=== PATIENT | male | born 1970 | race Hispanic/Latino ===

== ENCOUNTER → 2017-08-07 | Outpatient (CLI) | payer OTHER | LOC: M PAIN 11:15 | DX: G89.29 Other chronic pain (principal); M47.22 Other spondylosis with radiculopathy, cervical region | CPT/HCPCS: G0463 ==

== ENCOUNTER 2018-02-15 13:02 | Inpatient (IN) | payer OTHER ==
[~2018-02-15 13:02] MED LIST: LIDOCAINE 1% MDV 20ML VIAL SQ
[2018-02-15] MEDS ORDERED: fentaNYL 100 MCG/2 ML INJECTION (J3010) As Ordered (13:37)
[2018-02-15] MEDS ORDERED: dexameTHASONE 4 MG/ML 1ML VIAL (J1100) As Ordered (13:37)
[2018-02-15] MEDS ORDERED: LIDOCAINE 2% INJ 100 MG/5 ML SDV (FOR ANES.) As Ordered (13:37)
[2018-02-15] MEDS ORDERED: ROCURONIUM BROMIDE 50 MG/5 ML VIAL As Ordered (13:37)
[2018-02-15] MEDS ORDERED: MIDAZOLAM INJ 2 MG/2 ML VIAL (J2250) As Ordered (13:37)
[2018-02-15] MEDS ORDERED: PROPOFOL 200 MG/20 ML VIAL As Ordered (13:37)
[2018-02-15] MEDS: LR 1,000 ML IV ×2 (13:46→18:00)
[2018-02-15] MEDS: PERCOCET 5MG/325MG TAB PO ×2 (13:47→19:12)
[2018-02-15] MEDS: PREGABALIN 75 MG CAP(LYRICA) PO (13:47)
[2018-02-15] MEDS: CelecoXIB (CeleBREX) 100 MG CAP PO (13:48)
[2018-02-15] MEDS ORDERED: HYDROmorphone HCL 2 MG/ML 1ML VIAL (J1170) As Ordered (15:27)
[2018-02-15] MEDS ORDERED: ePHEDrine SULFATE 25 MG/5 ML(5MG/ML) SYRINGE As Ordered ×2 (15:37)
[2018-02-15] MEDS: BACITRACIN PWD 50,000 UNITS VIAL As Ordered (15:48)
[2018-02-15] MEDS: THROMBIN SOLN 20,000 UNITS KIT As Ordered (15:49)
[2018-02-15] MEDS ORDERED: GLYCOPYRROLATE INJ 0.2 MG/ML 2 ML VIAL As Ordered ×2 (17:21)
[2018-02-15] MEDS ORDERED: ONDANSETRON 4MG/2ML VIAL (J2405) As Ordered (17:21)
[2018-02-15] MEDS: methylPREDNISolone 500 MG VIAL (J2930) As Ordered (17:29)
[2018-02-15] MEDS: BUPIVACAINE/EPIN 0.25% 30 ML VIAL As Ordered (17:30)
[2018-02-15] MEDS: LIDOCAINE W/EPINEPHRINE 1% 20ML VIAL As Ordered (17:30)
[2018-02-15] MEDS ORDERED: HYDROMORPHONE HCL 0.5 MG/ 0.5 ML SYRINGE (J1170 PER 1) IV ×2 (18:00)
[2018-02-15] MEDS ORDERED: PERCOCET 5MG/325MG TAB PO (18:00)
[2018-02-15] MEDS ORDERED: fentaNYL 100 MCG/2 ML INJECTION (J3010) IV (18:00)
[2018-02-15] MEDS ORDERED: ONDANSETRON 4MG/2ML VIAL (J2405) IV (18:00)
[2018-02-15] MEDS: PROMETHAZINE INJ 25 MG/ML VIAL (J2550) IV (20:38)
[2018-02-15] MEDS: GABAPENTIN 300 MG CAP PO (21:24)
[2018-02-16] MEDS: GABAPENTIN 300 MG CAP PO (06:12)
[2018-02-16] MEDS: PERCOCET 5MG/325MG TAB PO (06:13)
[2018-02-16] MEDS: METAMUCIL (PSYLLIUM) PACKET PO (08:42)
== END 2018-02-16 12:05 | disposition home or self-care (01) | DRG 473 ==
LOC: M OR 13:02 → M MS5PR 19:30
PROC: 0RG2070 Fusion of 2 or more Cervical Vertebral Joints with Autologous Tissue Substitute, Anterior Approach, Anterior Column, Open Approach (ICD-10-PCS; principal; 2018-02-15 14:47)
PROC: 0RB30ZZ Excision of Cervical Vertebral Disc, Open Approach (ICD-10-PCS; 2018-02-15 14:47)
DX: M50.121 Cervical disc disorder at C4-C5 level with radiculopathy (principal); M48.02 Spinal stenosis, cervical region; Z79.899 Other long term (current) drug therapy

== ENCOUNTER → 2019-10-03 | Outpatient (REF) ==
[~2019-10-03] MED LIST changes: +GABA-843 PO; -LIDOCAINE 1% MDV 20ML VIAL SQ; +TIZA4CAP PO
== END ==
LOC: M LAB 11:58
PROVIDERS: ATTEND Nurse Practitioner Adult Health
DX: Z02.9 Encounter for administrative examinations, unspecified (principal)

== ENCOUNTER → 2020-07-20 | Outpatient (CLI) | payer OTHER ==
[~2020-07-20] MED LIST changes: +ECOT81TA5 PO; +GABA-282 PO; -GABA-843 PO
== END ==
LOC: M LABSMTC 12:42
PROVIDERS: ATTEND Pediatrics
DX: Z20.822 Contact with and (suspected) exposure to COVID-19 (principal)

== ENCOUNTER 2020-08-14 16:55 | Emergency (ER) | payer BC, OTHER ==
[~2020-08-14] VITALS: Ht 182.9 cm; Wt 102.3 kg
[~2020-08-14 16:55] MED LIST changes: -ECOT81TA5 PO
--- OUTSIDE RECORDS SUMMARY | 2020-08-14 17:03 | CCD ---
Author Author [facility] Organization [facility] Address Unknown Phone Unavailable Support Name Relationship Address Phone Jackie SALDANA Next Of Kin Unknown CHENRUBIN Next Of Kin [address] [place], [place] [id number] [employer] Next Of Kin [address] [place], [place] [id number] NONE, REQUESTED Next Of Kin [address] [place], [place] [id number] Re-disclosure Warning The records that you are about to access may contain information from federally-assisted alcohol or drug abuse programs. If such information is present, then the following federally mandated warning applies: This information has been disclosed to you from records protected by federal confidentiality rules (42 CFR part 2). The federal rules prohibit you from making any further disclosure of this information unless further disclosure is expressly permitted by the written consent of the person to whom it pertains or as otherwise permitted by 42 CFR part 2. A general authorization for the release of medical or other information is NOT sufficient for this purpose. The Federal rules restrict any use of the information to criminally investigate or prosecute any alcohol or drug abuse patient.The records that you are about to access may contain highly sensitive health information, the redisclosure of which is protected by Article 27-F of the [facility] Public Health law. If you continue you may have access to information: Regarding HIV / AIDS; Provided by facilities licensed or operated by the [facility] Office of Mental Health; or Provided by the [facility] Office for People With Developmental Disabilities. If such information is present, then the following [facility] mandated warning applies: This information has been disclosed to you from confidential records which are protected by state law. State law prohibits you from making any further disclosure of this information without the specific written consent of the person to whom it pertains, or as otherwise permitted by law. Any unauthorized further disclosure in violation of state law may result in a fine or chcf sentence or both. A general authorization for the release of medical or other information is NOT sufficient authorization for further disc losure. Family History Family Member Name Family Member Gender Family Member Status Date o f Status Description Data Source(s) Unknown Male Problem [facility] ([facility]) () Unknown Male Problem [facility] ([facility] ) Immunizations Vaccine Date Status Description Data Source(s) INFLUENZA VIRUS VACCINE QUADRIVALENT (6 MOS AN D UP) 03/09/2020 12:00:00 AM EDT completed [facility] Medications Medication Brand Name Start Date Product Form Dose Route Admi nistrative Instructions Pharmacy Instructions Status Indications Reaction Description Data Source(s) Naproxen 375 MG Oral Tablet Naproxen 08/02/2019 12:00:00 AM EST ORAL active [facility] ([facility]) Insurance Providers Payer name Policy type / Coverage type Policy ID Covered constitution party ID Covered constitution party's relationship to pierson Policy Pierson Plan Information EAST ACTIVE DUTY [id number] SP [id number] East Referrals Commercial [id number] Self [id number] East Referrals Commercial [id number] Self [id number] U [id number] Self [id number] East Referrals Commercial [id number] Self [id number] [place] [id number] 18 [id number] [place] - [place] [id number] 18 [id number] [place] [id number] 18 [id number] East Referrals Commercial [id number] Self [id number] East Humana Commercial [id number] Self [id number] East Referrals Commercial [id number] Self [id number] HUMANA EAST REG O [id number] S [id number] East Referrals Commercial [id number] Self [id number] EAST HUMANA [id number] SP [id number] East Referrals Commercial [id number] Self [id number] East Referrals Commercial [id number] Self [id number] East Referrals Commercial [id number] Self [id number] Surgeries/Procedures Procedure Description Date Indications Data Source(s) RADEX SPINE CRV COMPL W/OBLQ&FLEX&/XTN STDS 08/02/2019 12:00:00 AM EST [facility] ([facility]) Results ID Date Data Source [id number] 07/20/2020 12:00:00 PM EST [facility] Name Value Range Interpretation Code Description Data Taryn rce(s) Supporting Document(s) SARS coronavirus 2 RNA Not Detected [facility] [place] This lab was ordered by [facility] and reported by [facility]. Procedure
[2020-08-14] MEDS ORDERED: NITROGLYCERIN 0.4 MG SUBL TABLET SL PRN (17:15)
[2020-08-14] MEDS ORDERED: ASPIRIN 81 MG CHEW TABLET PO ONE (17:15)
--- NOTE | 2020-08-14 17:24 | REP ---
INDICATION: CHEST PAIN. COMPARISON: No comparison study TECHNIQUE: .. FINDINGS: The lungs are well inflated and free of infiltrate. Pleural angles are sharp. Heart size is normal. Pulmonary vasculature is not increased. IMPRESSION: No active disease. <Electronically signed by Kevin Collins > 08/14/20 [id number]
[2020-08-14 17:26] LABS: BASO % 0.6 % (0.0-1.0); EOS # 0.2 10^3/uL (0.0-0.5); EOS % 3.2 % (0.0-3.0); HEMATOCRIT 46.7 % (42.0-52.0); HEMOGLOBIN 15.8 g/dl (13.5-17.5); LYMPH % 43.2 % (24.0-44.0); MEAN CORPUSCULAR HEMOGLOBIN 29.8 pg (27.0-33.0); MEAN CORPUSCULAR HGB CONC 33.8 g/dl (32.0-36.5); MEAN CORPUSCULAR VOLUME 88.1 fl (80.0-96.0); MONO # 0.5 10^3/uL (0.0-0.8); MONO % 6.8 % (2.0-8.0); NEUTROPHILS # 3.2 10^3/uL (1.5-8.5); NEUTROPHILS % 45.9 % (36.0-66.0); PLATELET COUNT, AUTOMATED 258 10^3/uL (150-450)
[2020-08-14 17:37] VITALS: BP 141/80
[2020-08-14] MEDS ORDERED: ACETAMINOPHEN 500 MG TAB PO ONE (17:45)
--- OUTSIDE RECORDS SUMMARY | 2020-08-14 17:46 | CCD ---
Author Author [facility] Organization [facility] Address Unknown Phone Unavailable Support Name Relationship Address Phone SHILPA SALDANA Next Of Kin [id number] [place] [id number] LESJackie Next Of Kin Unknown CHENRUBIN Next Of Kin [address] [place], [place] [address] [facility] Next Of Kin [address] [place], [place] [address] NONE, REQUESTED Next Of Kin [address] [place], [place] [phone] Re-disclosure Warning The records that you are [...] is protected by Article 27-F of the [facility] Public Health law. If you continue you may have access to information: Regarding HIV / AIDS; Provided by facilities licensed or operated by the [facility] Office of Mental Health; or Provided by the [facility] Office for People With Developmental Disabilities. If such information is present, then the following [facility] mandated warning applies: This information has [...] law may result in a fine or senior care sentence or both. A general authorization for the release of medical or other information is NOT sufficient authorization for further disc losure. Family History Family Member Name Family Member Gender Family Member Status Date o f Status Description Data Source(s) Unknown Male Problem [facility] ([facility]) () Unknown Male Problem [facility] ([facility]) Immunizations Vaccine Date Status Description Data Source(s) INFLUENZA VIRUS VACCINE QUADRIVALENT (6 MOS AN D UP) 03/09/2020 12:00:00 AM EDT completed [facility] Medications Medication Brand Name Start Date Product Form Dose Route Admi nistrative Instructions Pharmacy Instructions Status Indications Reaction Description Data Source(s) Naproxen 375 MG Oral Tablet Naproxen 08/02/2019 12:00:00 AM EST ORAL active [facility] ([facility]) Insurance Providers Payer name Policy type / Coverage type Policy ID Covered constitution party ID Covered constitution party's relationship to pierson Policy Pi[place] Plan Information [employer] [place] PPO 302/307 [id number] SP [id number] WPS [id number]-[id number] [employer] [id number] SP [id number] EAST ACTIVE DUTY [id number] SP [id number] East Referrals Commercial [id number] Self [id number] East Referrals Commercial [id number] Self [id number] U [id number] Self [id number] East Referrals Commercial [id number] Self [id number] E[place] [employer] - O/[place] [id number] 18 [id number] E[place] - PHYSICIAN [place] [id number] 18 [id number] [place] [id number] 18 [id number] East Referrals Commercial [id number] Self [id number] East Humana Commercial [id number] Self [id number] East Referrals Commercial [id number] Self [id number] HUMANA EAST REG O [id number] S [id number] East Referrals Commercial [id number] Self [id number] EAST HUMANA [id number] East Referrals Commercial [id number] Self [id number] East Referrals Commercial [id number] Self [id number] East Referrals Commercial [id number] Self [id number] Surgeries/Procedures Procedure Description Date Indications Data Source(s) RADEX SPINE CRV COMPL W/OBLQ&FLEX&/XTN STDS 08/02/2019 12:00:00 AM EST [facility] ([facility]) Results ID Date Data Source [id number] 07/20/2020 12:00:00 PM EST [facility] Name Value Range Interpretation Code Description Data Taryn rce(s) Supporting Document(s) SARS coronavirus 2 RNA Not Detected [facility] [place] This lab was ordered by [facility] and reported by [facility]. Procedure
[2020-08-14 18:00] LABS: BILIRUBIN,DIRECT 0.1 MG/DL (0.0-0.2); BILIRUBIN,TOTAL 0.6 MG/DL (0.2-1.0); THYROID STIMULATING HORMONE 2.06 uIU/ML (0.358-3.740); TOTAL PROTEIN 7.9 GM/DL (6.4-8.2)
[2020-08-14] MEDS ORDERED: ECOT81TA5 PO (18:26)
[2020-08-14 23:17] VITALS: BP 131/87
--- NOTE | 2020-08-15 07:48 | ECGEPIP ---
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
--- NOTE | 2020-08-16 09:23 | ECGEPIP ---
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
== END 2020-08-14 23:20 | disposition home or self-care (01) ==
LOC: M ED 16:55
DX: R07.9 Chest pain, unspecified (principal); F17.200 Nicotine dependence, unspecified, uncomplicated